=== PATIENT | female | born 1935 | race Caucasian/White ===

== ENCOUNTER 2018-08-12 10:03 | Day surgery (SDC) | payer MEDICARE, BC ==
[2018-08-12] MEDS ORDERED: ACETAZOLAMIDE 250 MG PO ONE (10:32)
[2018-08-12] MEDS: TETRACAINE HCL 0.5 % 1 DROP SOL ONE ×3 (10:46→11:45)
[2018-08-12] MEDS: PHENYLEPHRINE HCL 10% OPHTHAL SOL ONE ×2 (10:47→11:00)
[2018-08-12] MEDS: CYCLOPENTOLATE 1% SOL ONE ×2 (10:47→11:00)
[2018-08-12] MEDS: KETOROLAC 0.5% OPTH 60 DROP SOL ONE ×2 (10:48→11:01)
[2018-08-12] MEDS ORDERED: FENTANYL 100MCG/2ML SOL ONE (10:50)
[2018-08-12] MEDS ORDERED: MIDAZOLAM 2 MG/2 ML SOL ONE (10:50)
[2018-08-12 10:58] VITALS: O2SAT 96
[2018-08-12] MEDS ORDERED: DEXAMETHASONE 20 MG/5 ML (4 MG/ML SOL) ONE (11:40)
[2018-08-12] MEDS ORDERED: POVIDONE IODINE 5% SOL ONE (11:40)
[2018-08-12] MEDS ORDERED: MOXIFLOXACIN HCL OPHTH 5 MG/ML SOL ONE (11:40)
[2018-08-12] MEDS ORDERED: LIDOCAINE HCL 1% MPF 30 SOL ONE (11:41)
[2018-08-12] MEDS: BSS 500 ML 500 ML IR ONE ×2 (11:51→12:04)
[2018-08-12 12:20] VITALS: BP 155/85; PULSE 64; RESP 16; TEMP 97.2
== END 2018-08-12 12:48 | disposition home or self-care (01) | DRG 125 ==
LOC: SURG 10:03
PROVIDERS: ATTEND Ophthalmology
DX: H25.89 Other age-related cataract (principal); E11.9 Type 2 diabetes mellitus without complications; H40.10X2 Unspecified open-angle glaucoma, moderate stage
CPT/HCPCS: 0191T; 66984; J1100; J2250; J3010; A9270-GY; C1783; J2001

== ENCOUNTER 2018-09-09 10:31 | Day surgery (SDC) | payer MEDICARE, BC ==
[~2018-09-09 10:31] MED LIST: MIDAZOLAM 2 MG/2 ML SOL ONE
[2018-09-09] MEDS ORDERED: ACETAZOLAMIDE 250 MG PO ONE (10:40)
[2018-09-09] MEDS: TETRACAINE HCL 0.5 % 1 DROP SOL ONE ×3 (11:01→11:56)
[2018-09-09] MEDS: PHENYLEPHRINE HCL 10% OPHTHAL SOL ONE ×2 (11:01→11:14)
[2018-09-09] MEDS: KETOROLAC 0.5% OPTH 60 DROP SOL ONE ×2 (11:02→11:15)
[2018-09-09] MEDS: CYCLOPENTOLATE 1% SOL ONE ×2 (11:02→11:15)
[2018-09-09 11:13] VITALS: BP 152/88; TEMP 97.5
[2018-09-09] MEDS ORDERED: DEXAMETHASONE 20 MG/5 ML (4 MG/ML SOL) ONE (11:49)
[2018-09-09] MEDS ORDERED: MOXIFLOXACIN HCL OPHTH 5 MG/ML SOL ONE (11:49)
[2018-09-09] MEDS ORDERED: BSS 500 ML 500 ML IR ONE (11:50)
[2018-09-09] MEDS ORDERED: POVIDONE IODINE 5% SOL ONE (11:50)
[2018-09-09] MEDS ORDERED: LIDOCAINE HCL 1% MPF 30 SOL ONE (11:50)
[2018-09-09 12:26] VITALS: PULSE 64; RESP 20; O2SAT 99
== END 2018-09-09 12:54 | disposition home or self-care (01) | DRG 125 ==
LOC: SURG 10:31
PROVIDERS: ATTEND Ophthalmology
DX: H25.89 Other age-related cataract (principal); H40.10X2 Unspecified open-angle glaucoma, moderate stage; E11.9 Type 2 diabetes mellitus without complications; Z79.4 Long term (current) use of insulin
CPT/HCPCS: 0191T; 66984; J1100; J2250; A9270-GY; J2001